=== PATIENT | female | born 1950 | race Caucasian/White ===

== ENCOUNTER 2017-05-02 16:04 | Emergency (ER) | payer OTHER ==
[~2017-05-02] VITALS: Ht 162.6 cm; Wt 55.0 kg
[~2017-05-02 16:04] MED LIST: AUGMENTIN875TAB PO; CIPROFLOXACIN250 MG OR; NO HOME MEDS; ULTRAM50 M1 PO
[2017-05-02 16:37] VITALS: BP 140/82
[2017-05-02] MEDS ORDERED: ATORVASTATIN CA40 MG PO (17:17)
[2017-05-02] MEDS ORDERED: NAPROSYN500 MG PO (17:23)
== END 2017-05-02 17:30 | disposition home or self-care (01) | DRG 552 ==
LOC: ED 16:04
DX: S16.1XXA Strain of muscle, fascia and tendon at neck level, initial encounter (principal); S20.211A Contusion of right front wall of thorax, initial encounter; S20.212A Contusion of left front wall of thorax, initial encounter; V53.6XXA Passenger in pick-up truck or van injured in collision with car, pick-up truck or van in traffic accident, initial encounter; Y92.414 Local residential or business street as the place of occurrence of the external cause

== ENCOUNTER 2019-08-29 12:40 | Emergency (ER) | payer OTHER ==
[~2019-08-29] VITALS: Ht 162.6 cm; Wt 45.0 kg
[~2019-08-29 12:40] MED LIST changes: +ATORVASTATIN CA40 MG PO; +NAPROSYN500 MG PO
[2019-08-29 13:17] LABS: HEMATOCRIT 42.7 % (37.0-47.0); IMMATURE GRANULOCYTES 0.3 % (0.0-5.0); MEAN CELL VOLUME 87.7 fL CALC (80.0-100.0); MEAN CORPUSCULAR HGB 28.7 pG CALC (26.0-32.0); MEAN CORPUSCULAR HGB CONC 32.8 g/L CALC (32.0-36.0); NEUT# 6.57 thou/uL (2.00-7.15); RED BLOOD COUNT 4.87 mill/uL (4.20-5.60); RED CELL DISTRI WIDTH 12.8 % (11.5-15.5)
[2019-08-29 13:22] LABS: URINE BLOOD DIPSTICK TRACE-INTACT (NEGATIVE); URINE COLOR YELLOW; URINE GLUCOSE - DIPSTICK NEGATIVE (NEGATIVE); URINE KETONE 40 mg/dL (NEGATIVE); URINE LEUK ESTERASE NEGATIVE (NEGATIVE); URINE PH 5.5 (4.5-8.0); URINE PROTEIN - DIPSTICK 30 mg/dL (NEG-TRACE); URINE SPECIFIC GRAVITY >=1.030
[2019-08-29 13:31] LABS: ALKALINE PHOSPHATASE 317 u/l (38-126); ANION GAP 16 (6-22 (CALC)); BILIRUBIN, TOTAL 1.4 mg/dL (0.0-1.4); BUN 24 mg/dL (8-23); BUN/CREATININE RATIO 46 (12-20 (CALC)); CARBON DIOXIDE 27 mmol/l (22-30); CHLORIDE 100 mmol/l (95-108); CREATININE 0.5 mg/dL (0.5-1.0); GFR > 60 ML/MIN (>=60 (CALC)); GFR FOR AFR.AMER. > 60 ML/MIN (>=60 (CALC)); POTASSIUM 3.3 mmol/l (3.5-5.1); SGOT/AST 366 u/l (9-36); SODIUM 139 mmol/l (137-146); TOTAL PROTEIN 8.2 g/dL (6.3-8.2)
[2019-08-29 13:34] LABS: URINE BILIRUBIN - DIPSTICK SMALL (NEGATIVE); URINE NITRITE - DIPSTICK POSITIVE (Negative)
[2019-08-29 13:38] LABS: LIPASE 16181 u/l (23-300)
[2019-08-29 13:43] LABS: URINE BACTERIA MANY hpf; URINE SQUAMOUS EPITHELIAL CELL FEW EPI/hpf (0-FEW)
[2019-08-29] MEDS ORDERED: B121000 MCG PO (15:10)
[2019-08-29 16:29] VITALS: BP 141/79
== END 2019-08-29 16:30 ==
LOC: ED 12:40
PROVIDERS: Family Medicine
DX: K85.90 Acute pancreatitis without necrosis or infection, unspecified (principal); K80.51 Calculus of bile duct without cholangitis or cholecystitis with obstruction; R82.71 Bacteriuria

== ENCOUNTER 2020-01-01 | Day surgery (SDC) | payer MEDICARE, OTHER ==
[~2020-01-01] MED LIST changes: +B121000 MCG PO
== END 2020-01-01 10:45 | disposition home or self-care (01) ==
PROC: 0DBK8ZX Excision of Ascending Colon, Via Natural or Artificial Opening Endoscopic, Diagnostic (ICD-10-PCS; principal; 2020-01-01)
DX: K63.5 Polyp of colon (principal); K64.4 Residual hemorrhoidal skin tags; E44.0 Moderate protein-calorie malnutrition; F03.90 Unspecified dementia, unspecified severity, without behavioral disturbance, psychotic disturbance, mood disturbance, and anxiety; Z80.0 Family history of malignant neoplasm of digestive organs

== ENCOUNTER 2021-12-02 11:59 | Observation (INO) | payer MEDICARE, OTHER ==
[~2021-12-02] VITALS: Ht 162.6 cm; Wt 42.0 kg
[2021-12-02 13:08] LABS: INTERNATIONAL NORMALIZED RATIO 0.9 RATIO (0.7-1.3); PROTHROMBIN TIME 9.9 SECONDS (9.0-12.5)
[2021-12-02 13:15] LABS: ALBUMIN 4.4 g/dL (3.2-5.0); ANION GAP 14 (6-22 (CALC)); BUN 21 mg/dL (8-23); BUN/CREATININE RATIO 52 (12-20 (CALC)); CARBON DIOXIDE 26 mmol/l (22-30); CHLORIDE 104 mmol/l (95-108); CREATININE 0.4 mg/dL (0.5-1.0); GFR > 60 ML/MIN (>=60 (CALC)); GFR FOR AFR.AMER. > 60 ML/MIN (>=60 (CALC)); POTASSIUM 3.8 mmol/l (3.5-5.1); SODIUM 141 mmol/l (137-146); TOTAL PROTEIN 7.4 g/dL (6.3-8.2)
[2021-12-02 13:18] LABS: HEMATOCRIT 41.2 % (37.0-47.0); HEMOGLOBIN 13.3 g/dl (12.0-16.0); IMMATURE GRANULOCYTES 0.4 % (0.0-5.0); MEAN CELL VOLUME 89.8 fL CALC (80.0-100.0); MEAN CORPUSCULAR HGB CONC 32.3 g/dL CAL (32.0-36.0); NEUT# 1.76 thou/uL (2.00-7.15); RED BLOOD COUNT 4.59 mill/uL (4.20-5.60); RED CELL DISTRI WIDTH 12.2 % (11.5-15.5)
[2021-12-02 13:32] LABS: ALKALINE PHOSPHATASE 94 u/l (38-126); BILIRUBIN, TOTAL 0.6 mg/dL (0.0-1.4); SGOT/AST 30 u/l (9-36)
[2021-12-02 14:36] LABS: C-REACTIVE PROTEIN < 0.5 mg/dL (0-0.9); CALCULATED LDLCHOLESTEROL 125 mg/dL (62-129 (CALC)); CHOLESTEROL HDL RATIO 3.4 (<4.4 (CALC)); HDL CHOLESTEROL 63 mg/dL (>=40); TOTAL CHOLESTEROL 212 mg/dl (0-199); TOTAL TRIGLYCERIDES 123 mg/dl (30-149); VLDL CHOLESTROL 25 mg/dl (0-48 (CALC))
[2021-12-02 14:49] LABS: URINE BILIRUBIN - DIPSTICK NEGATIVE (NEGATIVE); URINE BLOOD DIPSTICK NEGATIVE (NEGATIVE); URINE COLOR YELLOW; URINE GLUCOSE - DIPSTICK NEGATIVE (NEGATIVE); URINE KETONE 15 mg/dL (NEGATIVE); URINE LEUK ESTERASE NEGATIVE (NEGATIVE); URINE PROTEIN - DIPSTICK NEGATIVE (NEG-TRACE); URINE UROBILINOGEN - DIPSTICK 0.2 E.U./dL (0.2)
[2021-12-02 14:51] LABS: URINE NITRITE - DIPSTICK NEGATIVE (Negative)
[2021-12-02 19:00] VITALS: BP 141/84
[2021-12-02 23:48] VITALS: BP 112/77
[2021-12-03 04:00] VITALS: BP 148/82
[2021-12-03 05:41] LABS: HEMATOCRIT 39.3 % (37.0-47.0); HEMOGLOBIN 12.8 g/dl (12.0-16.0); MEAN CELL VOLUME 89.5 fL CALC (80.0-100.0); MEAN CORPUSCULAR HGB 29.2 pG CALC (26.0-32.0); MEAN CORPUSCULAR HGB CONC 32.6 g/dL CAL (32.0-36.0); RED BLOOD COUNT 4.39 mill/uL (4.20-5.60)
[2021-12-03 05:48] LABS: ANION GAP 10 (6-22 (CALC)); BUN 15 mg/dL (8-23); BUN/CREATININE RATIO 31 (12-20 (CALC)); CARBON DIOXIDE 31 mmol/l (22-30); CHLORIDE 103 mmol/l (95-108); CREATININE 0.5 mg/dL (0.5-1.0); GFR > 60 ML/MIN (>=60 (CALC)); GFR FOR AFR.AMER. > 60 ML/MIN (>=60 (CALC)); POTASSIUM 3.6 mmol/l (3.5-5.1); SODIUM 140 mmol/l (137-146)
[2021-12-03 08:06] VITALS: BP 154/81
[2021-12-03 10:50] VITALS: BP 135/76
[2021-12-03 13:39] VITALS: BP 111/72
[2021-12-03 14:50] VITALS: BP 124/78
[2021-12-03 19:00] VITALS: BP 138/71
[2021-12-04] VITALS: BP 117/74
[2021-12-04 04:10] VITALS: BP 123/64
[2021-12-04 05:43] LABS: HEMATOCRIT 37.7 % (37.0-47.0); HEMOGLOBIN 12.1 g/dl (12.0-16.0); MEAN CELL VOLUME 89.3 fL CALC (80.0-100.0); MEAN CORPUSCULAR HGB 28.7 pG CALC (26.0-32.0); MEAN CORPUSCULAR HGB CONC 32.1 g/dL CAL (32.0-36.0); RED BLOOD COUNT 4.22 mill/uL (4.20-5.60)
[2021-12-04 05:54] LABS: ANION GAP 8 (6-22 (CALC)); BUN 22 mg/dL (8-23); BUN/CREATININE RATIO 50 (12-20 (CALC)); CARBON DIOXIDE 32 mmol/l (22-30); CHLORIDE 104 mmol/l (95-108); CREATININE 0.4 mg/dL (0.5-1.0); GFR > 60 ML/MIN (>=60 (CALC)); GFR FOR AFR.AMER. > 60 ML/MIN (>=60 (CALC)); POTASSIUM 3.7 mmol/l (3.5-5.1); SODIUM 140 mmol/l (137-146)
[2021-12-04 07:50] VITALS: BP 146/79
[2021-12-04 10:45] VITALS: BP 156/84
[2021-12-04] MEDS ORDERED: ASPIRIN 81 LOW81 MG PO (12:03)
[2021-12-04] MEDS ORDERED: MECLIZINE25 MG PO (12:04)
== END 2021-12-04 14:58 | disposition home health service (06) ==
LOC: ED 11:59 → ED-I 13:30 → ED 14:41 → MS2 14:42
PROVIDERS: Family Medicine; Nurse Practitioner; ADMIT Hospitalist; ATTEND Hospitalist
DX: R42 Dizziness and giddiness (principal); R26.0 Ataxic gait; U07.1 COVID-19; E78.5 Hyperlipidemia, unspecified; R47.9 Unspecified speech disturbances
CPT/HCPCS: Q9967

== ENCOUNTER 2023-07-30 09:54 | Emergency (ER) | payer MEDICARE, OTHER ==
[~2023-07-30] VITALS: Ht 162.6 cm; Wt 42.6 kg
[~2023-07-30 09:54] MED LIST changes: +ASPIRIN 81 LOW81 MG PO; +MECLIZINE25 MG PO
[2023-07-30] MEDS ORDERED: NEOSPORIN3.5 G1 TOP (11:45)
[2023-07-30 12:09] VITALS: BP 149/94
== END 2023-07-30 12:15 | disposition home or self-care (01) ==
LOC: ED 09:54
DX: S70.311A Abrasion, right thigh, initial encounter (principal); E78.00 Pure hypercholesterolemia, unspecified; W54.8XXA Other contact with dog, initial encounter; Y92.009 Unspecified place in unspecified non-institutional (private) residence as the place of occurrence of the external cause

== ENCOUNTER 2023-11-24 19:23 | Emergency (ER) | payer MEDICARE, OTHER ==
[~2023-11-24] VITALS: Ht 162.6 cm; Wt 43.0 kg
[2023-11-24] VITALS (10 sets, daily range): BP systolic 107–143; BP diastolic 69–85
[~2023-11-24 19:23] MED LIST changes: +NEOSPORIN3.5 G1 TOP
[2023-11-24 20:21] LABS: BASO% 0.1 % (0-3); IMMATURE GRANULOCYTES 0.3 % (0.0-5.0); LYMPH% 7.7 % (15-41); MEAN CORPUSCULAR HGB 29.2 pG CALC (26.0-32.0); MEAN CORPUSCULAR HGB CONC 33.2 g/dL CAL (32.0-36.0); MONO% 6.1 % (2-13); NEUT# 8.99 thou/uL (2.00-7.15); NEUT% 85.8 % (42-76); RED CELL DISTRI WIDTH 11.8 % (11.5-15.5)
[2023-11-24 20:25] LABS: HEMOGLOBIN 14.6 g/dl (12.0-16.0)
[2023-11-24 20:27] LABS: ALBUMIN 4.6 g/dL (3.2-5.0); ALKALINE PHOSPHATASE 68 u/l (38-126); ANION GAP 18 (6-22 (CALC)); BILIRUBIN, TOTAL 0.6 mg/dL (0.02-1.3); BUN 30 mg/dL (8-23); BUN/CREATININE RATIO 48 (12-20 (CALC)); CHLORIDE 102 mmol/l (95-108); CREATININE 0.6 mg/dL (0.5-1.0); GFR FOR AFR.AMER. > 60 ML/MIN (>=60 (CALC)); GFR OTHER RACES > 60 ML/MIN (>=60 (CALC)); POTASSIUM 3.7 mmol/l (3.5-5.1); SGOT/AST 44 u/l (9-36); SODIUM 139 mmol/l (137-146); TOTAL PROTEIN 7.2 g/dL (6.3-8.2)
[2023-11-24 20:28] LABS: CARBON DIOXIDE 23 mmol/l (22-30)
[2023-11-24 21:57] LABS: URINE BLOOD DIPSTICK Small (NEGATIVE); URINE GLUCOSE - DIPSTICK Negative (NEGATIVE); URINE KETONE 80 mg/dL (NEGATIVE); URINE LEUK ESTERASE Trace (NEGATIVE); URINE PH 5.5 (4.5-8.0); URINE PROTEIN - DIPSTICK 100 mg/dL (NEG-TRACE); URINE SPECIFIC GRAVITY >=1.030; URINE UROBILINOGEN - DIPSTICK 0.2 E.U./dL (0.2)
[2023-11-24 21:59] LABS: URINE COLOR Yellow; URINE NITRITE - DIPSTICK Positive (Negative)
[2023-11-24 22:05] LABS: URINE BACTERIA FEW hpf; URINE FINE GRAN CAST FEW lpf; URINE SQUAMOUS EPITHELIAL CELL MODERATE EPI/hpf (0-FEW)
[2023-11-24] MEDS ORDERED: ZITHROMAX250 MG PO (22:39)
[2023-11-24] MEDS ORDERED: TAM75CAP PO (22:39)
[2023-11-24] MEDS ORDERED: MEDDOSEPAK PO (22:39)
[2023-11-24] MEDS ORDERED: CORICIDIN HBP DAY & PO (22:40)
== END 2023-11-24 22:54 | disposition home or self-care (01) ==
LOC: ED 19:23
PROVIDERS: Family Medicine
DX: J11.1 Influenza due to unidentified influenza virus with other respiratory manifestations (principal); Z20.822 Contact with and (suspected) exposure to COVID-19

== ENCOUNTER 2024-07-19 12:07 | Emergency (ER) | payer MEDICARE, OTHER ==
[~2024-07-19] VITALS: Ht 162.6 cm; Wt 45.0 kg
[~2024-07-19 12:07] MED LIST changes: +CORICIDIN HBP DAY & PO; +MEDDOSEPAK PO; +TAM75CAP PO; +ZITHROMAX250 MG PO
[2024-07-19 12:14] VITALS: BP 127/106
[2024-07-19 12:30] VITALS: BP 118/68
[2024-07-19 13:00] VITALS: BP 125/76
[2024-07-19 13:18] VITALS: BP 125/76
== END 2024-07-19 13:20 | disposition home or self-care (01) ==
LOC: ED 12:07
DX: S50.02XA Contusion of left elbow, initial encounter (principal); E78.00 Pure hypercholesterolemia, unspecified; X58.XXXA Exposure to other specified factors, initial encounter